=== PATIENT | female | born 2000 | race American Indian/Alaskan Native ===

== ENCOUNTER 2020-01-25 06:49 | Inpatient (IN) | payer MEDICAID ==
[2020-01-25] MEDS ORDERED: LIDOCAINE (2%) 20 MG/1 ML VIAL 20 ML MDV INFILTRATI SCH (09:00)
[2020-01-25] MEDS ORDERED: fentaNYL 100 MCG/2 ML INJ IV PRN ×2 (09:00→09:30)
[2020-01-25] MEDS ORDERED: MINERAL OIL 30 ML ORAL LIQD PO PRN (09:00)
[2020-01-25] MEDS ORDERED: OXYTOCIN DRIP 30 UNITS/500 ML BAG IV SCH ×2 (09:00)
[2020-01-25] MEDS ORDERED: AMPICILLIN/NS 2 GM/100 ML 2 GM/100 ML BAG IV SCH (09:00)
[2020-01-25] MEDS ORDERED: LACTATED RINGERS 1,000 ML IV SCH (09:00)
--- NOTE | 2020-01-25 09:02 | History and Physical Report ---
History of Present Illness Date of examination: 01/25/20 Date of admission: 01/25/20 07:22 Chief complaint: my water broke History of present illness: Pt presents c/o SROM noted by renewable energy engineer to be grossly SROM'ed. Pt also [place]. GBS positive Menstrual History Regularity: regular Menses every: 28 days Duration: 3 LMP: 05/19/2019 LMP reliability: month known LMP character: normal test type: urine test Date: 07/09/2019 BC at conception: none Planned ? no EDC Calculations EDC Confirmation: 02/12/2020 Gestational Age: 8 6/7 weeks Past History : 1 Term Births: 0 Premature Births: 0 Living Children: 0 Para: 0 Mult. Births: 0 Prev : 0 Prev. attempt? 0 Aborta: 0 Elect. Ab: 0 Spont. Ab: 0 Ectopics: 0 Past Medical History: Negative Past Medical History Past Surgical History: negative Past Medical History Anesthesia Complications: negative Anemia: negative Autoimmune Disorder: negative Bleeding Disorder: negative Blood Transfusions: negative Breast Disease: negative Diabetes: negative Heart Disease: negative Hypertension: negative Hepatitis/Liver Disease: negative Kidney Disease/UTI: negative Neurologic/Epilepsy/Migraines: negative Phlebitis/Varicosities: negative Psychiatric: negative Pulmonary Disease/Asthma: negative Thyroid Disease: negative Hospitalizations: negative Surgery (Non-russian language professor): negative Family Hx: dm - MGF lupus - MGM Social Hx: Single enrolled in [employer] no pets Infection History Hx of STD: none HIV Risk Eval: low risk Hepatitis B Risk Eval: low risk Personal hx. of genital herpes: no Partner hx. of genital herpes: no Rash, Viral, or Febrile illness since last LMP? no Varicella/Chicken Pox Status: Unknown Genetic History Congenital Heart Defect: Mom: no Dad: no Esmer Disease: Mom: no Dad: no Thalassemia Mom: no Dad: no Neural Tube Defect Mom: no Dad: no Down's Syndrome Mom: no Dad: no Channing-Sachs Mom: no Dad: no Sickle Cell Disease/Trait Mom: no Dad: no Hemophilia Mom: no Dad: no Muscular Dystrophy Mom: no Dad: no Cystic Fibrosis Mom: no Dad: no Martha Chorea Mom: no Dad: no Mental Retardation Mom: no Dad: no Fragile X Mom: no Dad: no Other Genetic/Chromosomal Disorder Mom: no Dad: no Child w/other defect Mom: no Dad: no Enviromental Exposures Xray Exposure: no Medication, drug, or alcohol use since LMP: no Chemical/Other Exposure: no Exposure to Cat Liter: no Hx of Parvovirus (Fifth Disease): no Occupational Exposure to Children: none Active Medications (reviewed today): None Current Allergies (reviewed today): No known allergies Past History Past Medical History: no pertinent history Past Surgical History: no surgical history INTRAVENOUS THERAPY NURSE History: other (see hpi) Family/Genetic History: other (see hpi) - Obstetrical History Expected Date of Delivery: 02/12/20 Actual Gestation: 37 Week(s) 3 Day(s) : 1 Medications and Allergies Allergies Allergy/AdvReac Type Severity Reaction Status Date / Time No Known Allergies Allergy Unverified 01/25/20 07:18 Home Medications Medication Instructions Recorded Confirmed Last Taken Type No Known Home Medications [No 01/25/20 01/25/20 Unknown History Reported Home Medications] Active Meds: Active Medications Fentanyl (Sublimaze) 100 mcg IV ONCE PRN PRN Reason: Labor Pain - Vital Signs Vital signs: Vital Signs Pulse BP 85 136/82 01/25/20 07:34 01/25/20 07:34 Temp Pulse Resp BP Pulse Ox 98.6 F 94 H 18 136/82 98 01/25/20 07:45 01/25/20 08:20 01/25/20 07:45 01/25/20 07:34 01/25/20 08:20 Results All other labs normal. Patient: GETACHEW FRENCH ID: [id number] Note: All result statuses are Final unless otherwise noted. Tests: (1) Profile I ([id number]) Order Note: Clinical Information: SRC:UR HBsAg Screen Negative Negative *1 RPR Non Reactive Non Reactive *2 Rubella Antibodies, IgG 2.83 index Immune >0.99 *3 Non-immune <0.90 Equivocal 0.90 - 0.99 Immune >0.99 ABO Grouping B *4 Rh Factor Positive *5 Please note: Prior records for this patient's ABO / Rh type are not available for additional verification. Antibody Screen Negative Negative *6 WBC 5.7 x10E3/uL 3.4-10.8 *7 RBC 4.03 x10E6/uL 3.77-5.28 *8 Hemoglobin 12.0 g/dL 11.1-15.9 *9 Hematocrit 35.8 % 34.0-46.6 *10 MCV 89 fL 79-97 *11 MCH 29.8 pg 26.6-33.0 *12 MCHC 33.5 g/dL 31.5-35.7 *13 RDW 14.3 % 11.7-15.4 *14 Platelets 311 x10E3/uL 150-450 *15 Neutrophils 61 % Not Estab. *16 Lymphs 28 % Not Estab. *17 Monocytes 8 % Not Estab. *18 Eos 3 % Not Estab. *19 Basos 0 % Not Estab. *20 ! Immature Cells <No Reported Value> *21 Neutrophils (Absolute) 3.4 x10E3/uL 1.4-7.0 *22 Lymphs (Absolute) 1.6 x10E3/uL 0.7-3.1 *23 Monocytes(Absolute) 0.4 x10E3/uL 0.1-0.9 *24 Eos (Absolute) 0.2 x10E3/uL 0.0-0.4 *25 Baso (Absolute) 0.0 x10E3/uL 0.0-0.2 *26 ! Immature Granulocytes 0 % Not Estab. *27 ! Immature Grans (Abs) 0.0 x10E3/uL 0.0-0.1 *28 ! NRBC <No Reported Value> *29 Hematology Comments: <No Reported Value> *30 Tests: (2) HIV Ag/Ab with Reflex ([id number]) HIV Screen 4th Generation wRfx Non Reactive Non Reactive *31 Tests: (3) HCV Ab w/Rflx to Verification ([id number]) ! HCV Ab 0.1 s/co ratio 0.0-0.9 *32 Tests: (4) Comment: ([id number]) ! Comment: [facility] *33 Non reactive HCV antibody screen is consistent with no HCV infection, unless recent infection is suspected or other evidence exists to indicate HCV infection. Tests: (5) Urine Culture, Routine ([id number]) Urine Culture, Routine Final report *34 Tests: (6) Result ([id number]) Assessment and Plan - Patient Problems (1) 37 weeks gestation of Current Visit: Yes Status: Acute (2) SROM (spontaneous rupture of membranes) Current Visit: Yes Status: Acute Plan to address problem: -pt in labor latent with contractions. Will start pitocin if contractions space to facility delivery -pt is GBS positive so will hold pitocin until she has had anitbx for the GBS (3) Positive GBS test Current Visit: Yes Status: Acute Plan to address problem: -start antibx at this time
[2020-01-25] MEDS ORDERED: TERBUTALINE 1 MG/1 ML INJ SUB-Q PRN (09:30)
[2020-01-25] MEDS ORDERED: ePHEDrine SULFATE 50 MG/1 ML INJ IV PRN ×2 (09:30→11:00)
[2020-01-25] MEDS ORDERED: ONDANSETRON 4 MG/2 ML INJ IV PRN ×2 (09:30→20:37)
[2020-01-25 10:16] LABS: Hematocrit 35.8 % (30.3-42.9); Hemoglobin 11.9 gm/dl (10.1-14.3); Mean Corpuscular HGB Conc 33 % (30-34); Mean Corpuscular Volume 91 fl (79-97); Platelet Count 218 K/mm3 (140-440); Red Blood Count 3.95 M/mm3 (3.65-5.03); Red Cell Distribution Width 13.5 % (13.2-15.2)
--- NOTE | 2020-01-25 10:45 | Anesthesia Consultation ---
Anesthesia Consult and Med Hx Date of service: 01/25/20 - Airway Anesthetic Teeth Evaluation: Good ROM Head & Neck: Adequate Mental/Hyoid Distance: Adequate Mallampati Class: Class II Intubation Access Assessment: Probably Good - Pulmonary Exam CTA: Yes - Cardiac Exam Cardiac Exam: RRR - Pre-Operative Health Status ASA Pre-Surgery Classification: ASA2 Proposed Anesthetic Plan: Epidural - Pulmonary Hx Smoking: No Hx Asthma: No Hx Respiratory Symptoms: No SOB: No COPD: No Home Oxygen Therapy: No Hx Pneumonia: No Hx Sleep Apnea: No - Cardiovascular System Hx Hypertension: No Hx Coronary Artery Disease: No Hx Heart Attack/AMI: No Hx Angina: No Hx Percutaneous Transluminal Coronary Angioplasty (PTCA): No Hx Cardia Arrhythmia: No Hx Pacemaker: No Hx Internal Defibrillator: No Hx Valvular Heart Disease: No Hx Heart Murmur: No Hx Peripheral Vascular Disease: No - Central Nervous System Hx Neuromuscular Disorder: No Hx Seizures: No CVA: No Hx Back Pain: No Hx Psychiatric Problems: No - Gastrointestinal Hx Ulcer: No Hx Gastroesophageal Reflux Disease: No - Endocrine Hx Renal Disease: No Hx End Stage Renal Disease: No Hx Cirrhosis: No Hx Liver Disease: No Hx Insulin Dependent Diabetes: No Hx Non-Insulin Dependent Diabetes: No Hx Thyroid Disease: No Hx Hypothyroidism: No Hx Hyperthyroidism: No - Hematic Hx Anemia: No Hx Sickle Cell Disease: No - Other Systems Hx Alcohol Use: No Hx Substance Use: No Hx Cancer: No Hx Obesity: No
[2020-01-25] MEDS ORDERED: NALOXONE 2 MG/2 ML INJ IV PRN (11:00)
[2020-01-25] MEDS ORDERED: fentaNYL-BUPIV 2 MCG/ML-0.125% 200 MCG/100 ML BAG EPIDURAL SCH (11:00)
--- NOTE | 2020-01-25 11:30 | Progress Note ---
Labor Epidural - Labor Epidural Start Time: 11:04 Stop Time: 11:18 Performed by:: QUIN ESPINOSA Procedure: Patient is requesting a laboring epidural for laboring pain. Patient IDed, H&P reviewed, all questions and concerns were answered, and consent was signed. Timeout was performed at bedside. Patient in sitting position. Sterile prep and drape was performed. [3] ml of 1% lidocaine skin wheal at L[3]- L [4]. 18- gauge Touhy epidural needle was advanced to loss of resistance with air technique 7cm X2 ATTEMPTS. Negative CSF negative blood. Epidural catheter advanced to [12] centimeters. [NEGATIVE] Aspiration [NEGATIVE] test dose. Sterile dressing applied. Patient tolerated procedure. performed by JIMENA Tucker
[2020-01-25] MEDS: AMPICILLIN/NS 1 GM/50 ML 1 GM/50 ML BAG IV SCH ×2 (12:45→18:28)
--- NOTE | 2020-01-25 14:16 | Progress Note ---
Assessment and Plan - Patient Problems (1) 37 weeks gestation of Current Visit: Yes Status: Acute (2) SROM (spontaneous rupture of membranes) Current Visit: Yes Status: Acute Plan to address problem: -pt in labor latent with contractions. -start pitocin at this time as contractions have spaced out -s/p andibx for GBS. Will con't until delivery -anticipate (3) Positive GBS test Current Visit: Yes Status: Acute Subjective - Subjective Date of service: 01/25/20 Principal diagnosis: 37+ weeks SROM, GBS + active labor Interval history: Pt s/p epidural and is more comfortable at this time and states she has no pain. exam is 590/0. d/w pt starting pitocin as she has mad minimal cx change since last exam 2 hours ago and shie has hd fewer contractions. She expressed understanding and agreess with plan of care. Patient reports: new complaints, loss of fluid, movement normal Objective - Vital Signs Vital Signs: Vital Signs - 12hr 01/25/20 01/25/20 01/25/20 07:34 07:35 07:40 Temperature Pulse Rate 85 84 93 H Respiratory Rate Blood Pressure 136/82 O2 Sat by Pulse 98 98 Oximetry 01/25/20 01/25/20 01/25/20 07:45 07:50 07:55 Temperature 98.6 F Pulse Rate 95 H 93 H 87 Respiratory 18 Rate Blood Pressure O2 Sat by Pulse 98 98 97 Oximetry 01/25/20 01/25/20 01/25/20 08:00 08:05 08:10 Temperature Pulse Rate 89 82 98 H Respiratory Rate Blood Pressure O2 Sat by Pulse 98 98 99 Oximetry 01/25/20 01/25/20 01/25/20 08:15 08:20 09:25 Temperature Pulse Rate 82 94 H 83 Respiratory Rate Blood Pressure O2 Sat by Pulse 99 98 97 Oximetry 01/25/20 01/25/20 01/25/20 09:30 09:35 09:40 Temperature Pulse Rate 85 85 73 Respiratory Rate Blood Pressure O2 Sat by Pulse 97 98 97 Oximetry 01/25/20 01/25/20 01/25/20 09:45 09:50 09:55 Temperature Pulse Rate 87 76 72 Respiratory Rate Blood Pressure O2 Sat by Pulse 98 98 97 Oximetry 11/21/20 11/21/20 11/21/20 10:00 10:05 10:10 Temperature Pulse Rate 74 71 94 H Respiratory Rate Blood Pressure O2 Sat by Pulse 98 98 98 Oximetry 01/25/20 01/25/20 01/25/20 10:20 10:25 10:30 Temperature Pulse Rate 73 75 68 Respiratory Rate Blood Pressure O2 Sat by Pulse 100 98 98 Oximetry 01/25/20 01/25/20 01/25/20 10:35 10:40 10:45 Temperature Pulse Rate 71 68 72 Respiratory Rate Blood Pressure O2 Sat by Pulse 98 98 98 Oximetry 01/25/20 01/25/20 01/25/20 10:50 10:55 11:00 Temperature Pulse Rate 75 90 89 Respiratory Rate Blood Pressure O2 Sat by Pulse 98 99 99 Oximetry 01/25/20 01/25/20 01/25/20 11:03 11:04 11:05 Temperature 97.9 F Pulse Rate 99 H 80 Respiratory Rate Blood Pressure 138/80 O2 Sat by Pulse 99 Oximetry 01/25/20 01/25/20 01/25/20 11:10 11:15 11:16 Temperature Pulse Rate 102 H 107 H 95 H Respiratory Rate Blood Pressure 128/79 O2 Sat by Pulse 99 97 Oximetry 01/25/20 01/25/20 01/25/20 11:19 11:20 11:21 Temperature Pulse Rate 70 85 83 Respiratory Rate Blood Pressure 125/77 124/72 O2 Sat by Pulse 98 Oximetry 01/25/20 01/25/20 01/25/20 11:25 11:27 11:30 Temperature Pulse Rate 75 86 90 Respiratory Rate Blood Pressure 125/88 O2 Sat by Pulse 99 98 Oximetry 01/25/20 01/25/20 01/25/20 11:31 11:35 11:37 Temperature Pulse Rate 85 86 78 Respiratory Rate Blood Pressure 128/60 113/61 O2 Sat by Pulse 98 Oximetry 01/25/20 01/25/20 01/25/20 11:40 11:41 11:45 Temperature Pulse Rate 80 78 86 Respiratory Rate Blood Pressure 119/69 O2 Sat by Pulse 98 98 Oximetry 01/25/20 01/25/20 01/25/20 11:50 11:55 11:57 Temperature Pulse Rate 83 79 80 Respiratory Rate Blood Pressure 120/56 O2 Sat by Pulse 98 98 Oximetry 01/25/20 01/25/20 01/25/20 12:00 12:05 12:10 Temperature Pulse Rate 86 80 84 Respiratory Rate Blood Pressure O2 Sat by Pulse 98 97 97 Oximetry 01/25/20 01/25/20 01/25/20 12:12 12:15 12:20 Temperature Pulse Rate 81 86 85 Respiratory Rate Blood Pressure 113/57 O2 Sat by Pulse 97 97 Oximetry 01/25/20 01/25/20 01/25/20 12:25 12:29 12:30 Temperature Pulse Rate 81 76 83 Respiratory Rate Blood Pressure 108/55 O2 Sat by Pulse 97 97 Oximetry 01/25/20 01/25/20 01/25/20 12:35 12:40 12:42 Temperature Pulse Rate 81 79 79 Respiratory Rate Blood Pressure 107/55 O2 Sat by Pulse 96 97 Oximetry 01/25/20 01/25/20 01/25/20 12:45 12:50 12:55 Temperature Pulse Rate 86 84 86 Respiratory Rate Blood Pressure O2 Sat by Pulse 97 97 97 Oximetry 01/25/20 01/25/20 01/25/20 12:57 13:00 13:05 Temperature Pulse Rate 93 H 81 75 Respiratory Rate Blood Pressure 108/60 O2 Sat by Pulse 97 98 Oximetry 01/25/20 01/25/20 01/25/20 13:10 13:13 13:15 Temperature Pulse Rate 77 71 78 Respiratory Rate Blood Pressure 114/61 O2 Sat by Pulse 98 98 Oximetry 01/25/20 01/25/20 01/25/20 13:20 13:25 13:27 Temperature Pulse Rate 77 75 79 Respiratory Rate Blood Pressure 104/59 O2 Sat by Pulse 96 97 Oximetry 01/25/20 01/25/20 01/25/20 13:30 13:35 13:40 Temperature Pulse Rate 76 73 74 Respiratory Rate Blood Pressure O2 Sat by Pulse 97 97 98 Oximetry 01/25/20 01/25/20 01/25/20 13:42 13:45 13:50 Temperature Pulse Rate 73 71 76 Respiratory Rate Blood Pressure 115/69 O2 Sat by Pulse 97 99 Oximetry 01/25/20 01/25/20 01/25/20 13:55 13:58 14:00 Temperature Pulse Rate 76 72 69 Respiratory Rate Blood Pressure 109/66 O2 Sat by Pulse 99 99 Oximetry 01/25/20 01/25/20 01/25/20 14:05 14:10 14:12 Temperature Pulse Rate 74 68 70 Respiratory Rate Blood Pressure 116/61 O2 Sat by Pulse 98 98 Oximetry - Exam FHR: category 2 (early varialbe noted with contractions overall good variability) Cervical Dilatation: 5 Cervical Effacement Percentage: 90 station: 0 Uterine Contraction Pattern: Irregular Uterine Tone Measurement Phase: Resting Uterine Contraction Intensity: Mild - Labs Labs: Laboratory Results - last 24 hr 01/25/20 01/25/20 01/25/20 09:00 09:00 09:00 WBC 6.9 RBC 3.95 Hgb 11.9 Hct 35.8 MCV 91 MCH 30 MCHC 33 RDW 13.5 Plt Count 218 Syphilis IgG Antibody Nonreactive Blood Type B POSITIVE Antibody Screen Negative
--- NOTE | 2020-01-25 14:48 | Event Note ---
Date: 01/25/20 I d/w pt placement if ISE/IUPC. All risk, benefits and alternatives were d/w pt and all questions were addressed and answered. Both devices placed w/o difficulty and pt tolearted the procedure well.
--- NOTE | 2020-01-25 17:39 | Progress Note ---
Assessment and Plan - Patient Problems (1) 37 weeks gestation of Current Visit: Yes Status: Acute (2) SROM (spontaneous rupture of membranes) Current Visit: Yes Status: Acute Plan to address problem: -con't to hold pitocin at this time and closely monitor -internal monitors in place -pt having labor progression that is appropriate and not off labor curve at this time. -anticipate (3) Positive GBS test Current Visit: Yes Status: Acute Subjective - Subjective Date of service: 01/25/20 Principal diagnosis: 37+ weeks SROM, GBS + active labor Interval history: Pt doing well. s/p prolonged jorge with slow recovery due to having consecutive contractions. Resolved with ivfs and position change and 02 which were applied prior to provider coming to the room.At the bedside the FHTs are currently cat 2 with good variability noted. Pt examined and is 8/100/1+. Will keep pitocin off a this time. Patient reports: new complaints, loss of fluid, movement normal Objective - Vital Signs Vital Signs: Vital Signs - 12hr 01/25/20 01/25/20 01/25/20 07:34 07:35 07:40 Temperature Pulse Rate 85 84 93 H Respiratory Rate Blood Pressure 136/82 O2 Sat by Pulse 98 98 Oximetry 01/25/20 01/25/20 01/25/20 07:45 07:50 07:55 Temperature 98.6 F Pulse Rate 95 H 93 H 87 Respiratory 18 Rate Blood Pressure O2 Sat by Pulse 98 98 97 Oximetry 01/25/20 01/25/20 01/25/20 08:00 08:05 08:10 Temperature Pulse Rate 89 82 98 H Respiratory Rate Blood Pressure O2 Sat by Pulse 98 98 99 Oximetry 01/25/20 01/25/20 01/25/20 08:15 08:20 09:25 Temperature Pulse Rate 82 94 H 83 Respiratory Rate Blood Pressure O2 Sat by Pulse 99 98 97 Oximetry 01/25/20 01/25/20 01/25/20 09:30 09:35 09:40 Temperature Pulse Rate 85 85 73 Respiratory Rate Blood Pressure O2 Sat by Pulse 97 98 97 Oximetry 01/25/20 01/25/20 01/25/20 09:45 09:50 09:55 Temperature Pulse Rate 87 76 72 Respiratory Rate Blood Pressure O2 Sat by Pulse 98 98 97 Oximetry 01/25/20 01/25/20 01/25/20 10:00 10:05 10:10 Temperature Pulse Rate 74 71 94 H Respiratory Rate Blood Pressure O2 Sat by Pulse 98 98 98 Oximetry 01/25/20 01/25/20 01/25/20 10:20 10:25 10:30 Temperature Pulse Rate 73 75 68 Respiratory Rate Blood Pressure O2 Sat by Pulse 100 98 98 Oximetry 01/25/20 01/25/20 01/25/20 10:35 10:40 10:45 Temperature Pulse Rate 71 68 72 Respiratory Rate Blood Pressure O2 Sat by Pulse 98 98 98 Oximetry 01/25/20 01/25/20 01/25/20 10:50 10:55 11:00 Temperature Pulse Rate 75 90 89 Respiratory Rate Blood Pressure O2 Sat by Pulse 98 99 99 Oximetry 01/25/20 01/25/20 01/25/20 11:03 11:04 11:05 Temperature 97.9 F Pulse Rate 99 H 80 Respiratory Rate Blood Pressure 138/80 O2 Sat by Pulse 99 Oximetry 01/25/20 01/25/20 01/25/20 11:10 11:15 11:16 Temperature Pulse Rate 102 H 107 H 95 H Respiratory Rate Blood Pressure 128/79 O2 Sat by Pulse 99 97 Oximetry 01/25/20 01/25/20 01/25/20 11:19 11:20 11:21 Temperature Pulse Rate 70 85 83 Respiratory Rate Blood Pressure 125/77 124/72 O2 Sat by Pulse 98 Oximetry 01/25/20 01/25/20 01/25/20 11:25 11:27 11:30 Temperature Pulse Rate 75 86 90 Respiratory Rate Blood Pressure 125/88 O2 Sat by Pulse 99 98 Oximetry 01/25/20 01/25/20 01/25/20 11:31 11:35 11:37 Temperature Pulse Rate 85 86 78 Respiratory Rate Blood Pressure 128/60 113/61 O2 Sat by Pulse 98 Oximetry 01/25/20 01/25/20 01/25/20 11:40 11:41 11:45 Temperature Pulse Rate 80 78 86 Respiratory Rate Blood Pressure 119/69 O2 Sat by Pulse 98 98 Oximetry 01/25/20 01/25/20 01/25/20 11:50 11:55 11:57 Temperature Pulse Rate 83 79 80 Respiratory Rate Blood Pressure 120/56 O2 Sat by Pulse 98 98 Oximetry 01/25/20 01/25/20 01/25/20 12:00 12:05 12:10 Temperature Pulse Rate 86 80 84 Respiratory Rate Blood Pressure O2 Sat by Pulse 98 97 97 Oximetry 01/25/20 01/25/20 01/25/20 12:12 12:15 12:20 Temperature Pulse Rate 81 86 85 Respiratory Rate Blood Pressure 113/57 O2 Sat by Pulse 97 97 Oximetry 01/25/20 01/25/20 01/25/20 12:25 12:29 12:30 Temperature Pulse Rate 81 76 83 Respiratory Rate Blood Pressure 108/55 O2 Sat by Pulse 97 97 Oximetry 01/25/20 01/25/20 01/25/20 12:35 12:40 12:42 Temperature Pulse Rate 81 79 79 Respiratory Rate Blood Pressure 107/55 O2 Sat by Pulse 96 97 Oximetry 01/25/20 01/25/20 01/25/20 12:45 12:50 12:55 Temperature Pulse Rate 86 84 86 Respiratory Rate Blood Pressure O2 Sat by Pulse 97 97 97 Oximetry 01/25/20 01/25/20 01/25/20 12:57 13:00 13:05 Temperature Pulse Rate 93 H 81 75 Respiratory Rate Blood Pressure 108/60 O2 Sat by Pulse 97 98 Oximetry 01/25/20 01/25/20 01/25/20 13:10 13:13 13:15 Temperature Pulse Rate 77 71 78 Respiratory Rate Blood Pressure 114/61 O2 Sat by Pulse 98 98 Oximetry 01/25/20 01/25/20 01/25/20 13:20 13:25 13:27 Temperature Pulse Rate 77 75 79 Respiratory Rate Blood Pressure 104/59 O2 Sat by Pulse 96 97 Oximetry 01/25/20 01/25/20 01/25/20 13:30 13:35 13:40 Temperature Pulse Rate 76 73 74 Respiratory Rate Blood Pressure O2 Sat by Pulse 97 97 98 Oximetry 01/25/20 01/25/20 01/25/20 13:42 13:45 13:50 Temperature Pulse Rate 73 71 76 Respiratory Rate Blood Pressure 115/69 O2 Sat by Pulse 97 99 Oximetry 01/25/20 01/25/20 01/25/20 13:55 13:58 14:00 Temperature Pulse Rate 76 72 69 Respiratory Rate Blood Pressure 109/66 O2 Sat by Pulse 99 99 Oximetry 01/25/20 01/25/20 01/25/20 14:05 14:10 14:12 Temperature Pulse Rate 74 68 70 Respiratory Rate Blood Pressure 116/61 O2 Sat by Pulse 98 98 Oximetry 01/25/20 01/25/20 01/25/20 14:15 14:20 14:25 Temperature Pulse Rate 72 71 80 Respiratory Rate Blood Pressure O2 Sat by Pulse 98 97 97 Oximetry 01/25/20 01/25/20 01/25/20 14:28 14:30 14:35 Temperature Pulse Rate 68 72 73 Respiratory Rate Blood Pressure 108/56 O2 Sat by Pulse 97 97 Oximetry 01/25/20 01/25/20 01/25/20 14:40 14:44 14:45 Temperature Pulse Rate 67 70 68 Respiratory Rate Blood Pressure 107/58 O2 Sat by Pulse 99 97 Oximetry 01/25/20 01/25/20 01/25/20 14:50 14:55 14:57 Temperature Pulse Rate 68 65 67 Respiratory Rate Blood Pressure 107/59 O2 Sat by Pulse 95 99 Oximetry 01/25/20 01/25/20 01/25/20 15:00 15:05 15:10 Temperature Pulse Rate 70 73 75 Respiratory Rate Blood Pressure O2 Sat by Pulse 97 98 97 Oximetry 01/25/20 01/25/20 01/25/20 15:12 15:15 15:20 Temperature Pulse Rate 68 71 74 Respiratory Rate Blood Pressure 103/58 O2 Sat by Pulse 97 97 Oximetry 01/25/20 01/25/20 01/25/20 15:25 15:28 15:30 Temperature Pulse Rate 71 75 69 Respiratory Rate Blood Pressure 107/55 O2 Sat by Pulse 97 98 Oximetry 01/25/20 01/25/20 01/25/20 15:35 15:40 15:42 Temperature Pulse Rate 71 77 72 Respiratory Rate Blood Pressure 102/54 O2 Sat by Pulse 98 98 Oximetry 01/25/20 01/25/20 01/25/20 15:45 15:50 15:55 Temperature Pulse Rate 70 72 69 Respiratory Rate Blood Pressure O2 Sat by Pulse 98 98 97 Oximetry 01/25/20 01/25/20 01/25/20 15:57 16:00 16:05 Temperature Pulse Rate 68 71 67 Respiratory Rate Blood Pressure 102/56 O2 Sat by Pulse 97 97 Oximetry 01/25/20 01/25/20 01/25/20 16:10 16:12 16:15 Temperature Pulse Rate 74 71 82 Respiratory Rate Blood Pressure 109/59 O2 Sat by Pulse 97 97 Oximetry 01/25/20 01/25/20 01/25/20 16:20 16:25 16:28 Temperature Pulse Rate 74 78 70 Respiratory Rate Blood Pressure 108/57 O2 Sat by Pulse 99 99 Oximetry 01/25/20 01/25/20 01/25/20 16:30 16:35 16:40 Temperature Pulse Rate 76 86 68 Respiratory Rate Blood Pressure O2 Sat by Pulse 98 98 98 Oximetry 01/25/20 01/25/20 01/25/20 16:42 16:45 16:50 Temperature Pulse Rate 70 64 69 Respiratory Rate Blood Pressure 103/61 O2 Sat by Pulse 99 100 Oximetry 01/25/20 01/25/20 01/25/20 16:55 16:57 17:00 Temperature Pulse Rate 72 82 87 Respiratory Rate Blood Pressure 116/69 O2 Sat by Pulse 99 98 Oximetry 01/25/20 01/25/20 01/25/20 17:05 17:10 17:12 Temperature Pulse Rate 67 66 66 Respiratory Rate Blood Pressure 116/68 O2 Sat by Pulse 99 99 Oximetry 01/25/20 01/25/20 01/25/20 17:15 17:20 17:25 Temperature Pulse Rate 64 69 77 Respiratory Rate Blood Pressure O2 Sat by Pulse 99 100 99 Oximetry 01/25/20 01/25/20 17:27 17:30 Temperature Pulse Rate 69 91 H Respiratory Rate Blood Pressure 117/69 O2 Sat by Pulse 98 Oximetry - Exam FHR: category 2 Cervical Dilatation: 8 Cervical Effacement Percentage: 100 station: 1+ Uterine Contraction Pattern: Regular Uterine Tone Measurement Phase: Resting Uterine Contraction Intensity: Moderate Extremities: normal - Labs Labs: Laboratory Results - last 24 hr 01/25/20 01/25/20 01/25/20 09:00 09:00 09:00 WBC 6.9 RBC 3.95 Hgb 11.9 Hct 35.8 MCV 91 MCH 30 MCHC 33 RDW 13.5 Plt Count 218 Syphilis IgG Antibody Nonreactive Blood Type B POSITIVE Antibody Screen Negative
--- NOTE | 2020-01-25 20:35 | Procedure Note ---
OB Delivery Note - Delivery Date of Delivery: 01/25/20 Surgeon: MICHELLE JOHANSEN Estimated blood loss: 300cc - Vaginal Delivery presentation: vertex Delivery position: OA Intrapartum events: mult.variable deceleratio, other(please specify) (tight nuchal cord) Delivery induction: none Delivery augmentation: pitocin Delivery monitor: external FHT, external uterine, internal FHT, internal uterine Route of delivery: Delivery placenta: spontaneous Delivery cord: nuchal cord (times one tight. clamped times 2 and cut times one) Episiotomy: midline (no extension) Delivery repair: vicryl (3-0) Anesthesia: intravenous, epidural Delivery comments: Delivery as above. Ant shoulder and rest of delivered without difficulty. Nuchal cord clamped times x2 and cut times one and easily reduced. taken to waiting NICU team. Infant delivered over MLE. MLE was w/o extension and repaired in usual fashion. Placenta delivered spontaneously intact. EBL 300ml. - A at 1 minute: 7 at 5 minutes: 9 Infant Gender: Male (5lbs 7oz)
[2020-01-25] MEDS ORDERED: LANOLIN/ZINC/DIMETHICONE (LANSINOH) 7 GM TP PRN (20:37)
[2020-01-25] MEDS ORDERED: diphenhydrAMINE 25 MG CAP PO PRN (20:37)
[2020-01-25] MEDS ORDERED: MAGNESIUM HYDROXIDE (MOM) ORAL LIQD UDC PO PRN (20:37)
--- NOTE | 2020-01-25 22:41 | Post Anesthesia Evaluation ---
- Post Anesthesia Evaluation Patient Participated: Yes Airway Patent: Yes Stable Respiratory Function: Yes Nausea/Vomiting: No Temp > 96.8F: Yes Pain Manageable: Yes Adequeate Hydration: Yes Anesthesia Complications: No Block Receding Appropriately: Yes Patient on Ventilator: No
[2020-01-25] MEDS: WITCH HAZEL/ GLYCERIN PAD TP PRN (23:51)
[2020-01-25] MEDS: IBUPROFEN 800 MG TAB PO SCH (23:53)
[2020-01-25] MEDS: DOCUSATE SODIUM 100 MG CAP PO SCH (23:54)
[2020-01-26] MEDS ORDERED: IBUPROFEN 600 MG TAB PO SCH
[2020-01-26] MEDS: IBUPROFEN 800 MG TAB PO SCH ×3 (06:45→18:07)
[2020-01-26] MEDS: DOCUSATE SODIUM 100 MG CAP PO SCH ×2 (09:38→23:29)
[2020-01-26 11:14] LABS: Hematocrit 30.4 % (30.3-42.9); Hemoglobin 9.9 gm/dl (10.1-14.3)
--- NOTE | 2020-01-26 11:50 | Progress Note ---
Assessment and Plan - Patient Problems (1) 37 weeks gestation of Current Visit: Yes Status: Resolved (2) SROM (spontaneous rupture of membranes) Current Visit: Yes Status: Resolved (3) Positive GBS test Current Visit: Yes Status: Acute (4) Normal vaginal delivery Current Visit: Yes Status: Acute Plan to address problem: -doing well -con't care -d/c home this pm Subjective - Subjective Date of service: 01/26/20 Principal diagnosis: PPD#1 s/p Interval history: Pt doing well. Pain is well controlled. States she would like d/c home today if baby is cleared for discharge. I d/w that I will write the order and if infant cleared she will be d/c home today. Patient reports: appetite normal, voiding normally [place]: doing well, nursing well, bottle feeding Objective - Vital Signs Latest vital signs: Vital Signs Temp Pulse Resp BP BP Pulse Ox 01/26/20 09:14 97.8 F 113 H 18 125/79 95 01/26/20 05:16 98.7 F 107 H 16 117/57 97 01/25/20 22:45 98.9 F 76 20 120/67 97 01/25/20 22:36 99.0 F 83 117/61 01/25/20 22:35 83 117/61 01/25/20 22:27 81 115/56 01/25/20 22:12 83 112/60 01/25/20 22:04 102 H 99 01/25/20 21:59 85 97 01/25/20 21:57 82 115/57 01/25/20 21:54 89 99 01/25/20 21:49 97 H 99 01/25/20 21:44 90 97 01/25/20 21:42 82 109/56 01/25/20 21:39 81 98 01/25/20 21:34 82 97 01/25/20 21:32 99.1 F 81 18 117/61 01/25/20 21:29 87 98 01/25/20 21:27 88 117/61 01/25/20 21:24 87 97 01/25/20 21:19 81 96 01/25/20 21:14 94 H 98 01/25/20 21:12 90 113/58 01/25/20 21:09 85 98 01/25/20 21:04 88 96 11/21/20 21:03 93 H 93 11/21/20 20:59 88 97 11/21/20 20:57 93 H 117/56 11/21/20 20:54 91 H 98 11/21/20 20:49 94 H 98 11/21/20 20:44 97 H 98 11/21/20 20:42 96 H 121/56 11/21/20 20:39 99 H 98 11/21/20 20:35 101 H 91 1121/20 20:34 93 H 99 21/20 20:27 81 107/53 98 11/21/20 20:22 89 98 11/21/20 20:17 85 98 11/21/20 20:12 85 111/58 98 11/21/20 20:07 74 97 21/20 20:02 69 98 21/20 19:58 66 92 21/20 19:57 93 H 103/55 98 /21/20 19:52 85 98 21/20 19:47 101 H 99 21/20 19:42 99 H 99 21/20 19:38 109 H 93 21/20 19:37 75 98 /21/20 19:32 78 99 21/20 19:27 83 120/58 98 /21/20 19:21 87 95 21/20 19:20 69 90 21/20 19:16 76 99 21/20 19:15 104 H 93 21/20 19:12 69 125/60 21/20 19:11 78 98 21/20 19:08 89 89 21/20 19:06 144 H 98 21/20 19:03 100 H 91 21/20 19:01 67 98 /21/20 18:56 85 90 21/20 18:55 76 98 21/20 18:50 91 H 99 21/20 18:45 83 99 21/20 18:43 78 94 21/20 18:42 78 126/72 21/20 18:40 84 98 /21/20 18:35 67 98 21/20 18:30 78 98 21/20 18:27 72 116/64 21/20 18:25 68 100 11/21/20 18:20 69 98 21/20 18:15 72 98 21/20 18:13 71 116/63 01/24/20 18:10 78 99 21/20 18:05 81 98 01/24/20 18:00 77 99 21/20 17:57 64 118/63 01/24/20 17:55 65 98 21/20 17:50 70 99 01/24/20 17:45 63 98 01/24/20 17:43 66 123/62 01/24/20 17:40 79 98 21/20 17:35 71 98 21/20 17:30 91 H 98 01/24/20 17:27 69 117/69 01/24/20 17:25 77 99 01/24/20 17:20 69 100 01/24/20 17:15 64 99 01/24/20 17:12 66 116/68 01/24/20 17:10 66 99 01/24/20 17:05 67 99 20 17:00 87 98 01/24/20 16:57 82 116/69 01/24/20 16:55 72 99 01/24/20 16:50 69 100 01/24/20 16:45 64 99 01/24/20 16:42 70 103/61 01/24/20 16:40 68 98 01/24/20 16:35 86 98 01/24/20 16:30 76 98 01/24/20 16:28 70 108/57 01/24/20 16:25 78 99 01/24/20 16:20 74 99 01/24/20 16:15 82 97 01/24/20 16:12 71 109/59 21/20 16:10 74 97 21/20 16:05 67 97 21/20 16:00 71 97 21/20 15:57 68 102/56 21/20 15:55 69 97 21/20 15:50 72 98 21/20 15:45 70 98 21/20 15:42 72 102/54 21/20 15:40 77 98 21/20 15:35 71 98 21/20 15:30 69 98 21/20 15:28 75 107/55 21/20 15:25 71 97 20 15:20 74 97 20 15:15 71 97 20 15:12 68 103/58 01/25/20 15:10 75 97 01/25/20 15:05 73 98 01/25/20 15:00 70 97 01/25/20 14:57 67 107/59 01/25/20 14:55 65 99 01/25/20 14:50 68 95 01/25/20 14:45 68 97 01/25/20 14:44 70 107/58 01/25/20 14:40 67 99 01/25/20 14:35 73 97 01/25/20 14:30 72 97 01/25/20 14:28 68 108/56 01/25/20 14:25 80 97 01/25/20 14:20 71 97 01/25/20 14:15 72 98 01/25/20 14:12 70 116/61 01/25/20 14:10 68 98 01/25/20 14:05 74 98 01/25/20 14:00 69 99 01/25/20 13:58 72 109/66 01/25/20 13:55 76 99 01/25/20 13:50 76 99 01/25/20 13:45 71 97 01/25/20 13:42 73 115/69 01/25/20 13:40 74 98 01/25/20 13:35 73 97 01/25/20 13:30 76 97 01/25/20 13:27 79 104/59 01/25/20 13:25 75 97 01/25/20 13:20 77 96 01/25/20 13:15 78 98 01/25/20 13:13 71 114/61 20 13:10 77 98 01/25/20 13:05 75 98 01/25/20 13:00 81 97 01/25/20 12:57 93 H 108/60 01/25/20 12:55 86 97 01/25/20 12:50 84 97 20 12:45 86 97 01/25/20 12:42 79 107/55 20 12:40 79 97 01/25/20 12:35 81 96 01/25/20 12:30 83 97 01/25/20 12:29 76 108/55 01/25/20 12:25 81 97 01/25/20 12:20 85 97 01/25/20 12:15 86 97 01/25/20 12:12 81 113/57 01/25/20 12:10 84 97 01/25/20 12:05 80 97 01/25/20 12:00 86 98 01/25/20 11:57 80 120/56 01/25/20 11:55 79 98 01/25/20 11:50 83 98 Intake and Output 01/25/20 01/26/20 01/26/20 22:59 06:59 14:59 Intake Total 19.466 240 Output Total 1600 Balance -1580.534 240 Intake: IV 19.466 Left Antecubital 10 PITOCin/NS 30 UNIT/500ML 9.466 30 units In 500 ml @ 2 mls/hr IV TITR MARINO Rx#: [id number] Intake, Free Water 240 Output: Urine 1600 Uretheral (Mcclellan) 400 Void 1200 Other: Total, Output Amount 1200 # Voids Void 1 Estimated Blood Loss 300 - Exam Cardiovascular: Present: Normal S1, Normal S2 Lungs: Present: Clear to auscultation, Normal air movement Abdomen: Present: normal appearance, soft. Absent: distention, tenderness, guarding Deep Tendon Reflex Grade: Normal +2 - Labs Labs: Abnormal lab results 01/26/20 Range/Units 10:33 Hgb 9.9 L (10.1-14.3) gm/dl
--- NOTE | 2020-01-26 12:23 | Discharge Summary ---
Providers - Providers Date of Admission: 01/25/20 08:55 Date of discharge: 01/26/20 Attending physician: GORAN LANDA Primary care physician: GORAN LANDA Hospitalization Reason for admission: rupture of membranes Delivery: Procedure details: see delivery note Episiotomy: midline (no extensions) Laceration: none Other procedures: none complications: none baby: male Hospital course: Pt admitted and had that was not complicated. She has had routine pp care thus far and desires d/c home this pm. Condition at discharge: Good Disposition: DC-01 TO HOME OR SELFCARE - Discharge Diagnoses (1) 37 weeks gestation of Status: Resolved (2) SROM (spontaneous rupture of membranes) Status: Resolved (3) Positive GBS test Status: Acute (4) Normal vaginal delivery Status: Acute Plan - Provider Discharge Summary Activity: routine, no sex for 6 weeks, no heavy lifting 4 weeks Diet: routine Instructions: routine Additional instructions: [] Smoking cessation referral if applicable(refer to patient education folder for contact #) [] Refer to [facility] Booklet Call your doctor immediately for: * Fever > 100.5 * Heavy vaginal bleeding ( >1 pad per hour) * Severe persistent headache * Shortness of breath * Reddened, hot, painful area to leg or breast * Drainage or odor from incision. * Keep incision clean and dry at all times and follow doctor's instructions regarding bathing/showering - Follow up plan Follow up: GORAN LANDA MD [Primary Care Provider] - 7 Days
[2020-01-26] MEDS ORDERED: DIPHtheria,PERTUSSIS(ACELL),TETANUS VACCINE/PF 0.5 ML VIAL IM ONE (20:38)
[2020-01-27] MEDS: IBUPROFEN 800 MG TAB PO SCH ×2 (05:11→11:05)
[2020-01-27] MEDS: WITCH HAZEL/ GLYCERIN PAD TP PRN (05:11)
[2020-01-27] MEDS: DOCUSATE SODIUM 100 MG CAP PO SCH (11:06)
[2020-01-27 14:06] VITALS: BP 110/77
== END 2020-01-27 15:20 | disposition home or self-care (01) | DRG 775 ==
LOC: TRG 06:49 → INTOOBSV 07:22 → LD 07:22 → OBSVTOIN 08:55 → OB 22:49
PROVIDERS: ADMIT Obstetrics & Gynecology; ATTEND Obstetrics & Gynecology
PROC: 10E0XZZ Delivery of Products of Conception, External Approach (ICD-10-PCS; principal; 2020-01-25)
PROC: 0W8NXZZ Division of Female Perineum, External Approach (ICD-10-PCS; 2020-01-25)
PROC: 3E0R3BZ Introduction of Anesthetic Agent into Spinal Canal, Percutaneous Approach (ICD-10-PCS; 2020-01-25)
PROC: 00HU33Z Insertion of Infusion Device into Spinal Canal, Percutaneous Approach (ICD-10-PCS; 2020-01-25)
PROC: 3E0234Z Introduction of Serum, Toxoid and Vaccine into Muscle, Percutaneous Approach (ICD-10-PCS; 2020-01-26)
DX: O42.92 Full-term premature rupture of membranes, unspecified as to length of time between rupture and onset of labor (principal); O99.824 Streptococcus B carrier state complicating childbirth; Z3A.37 37 weeks gestation of pregnancy; Z37.0 Single live birth; Z23 Encounter for immunization; O69.1XX0 Labor and delivery complicated by cord around neck, with compression, not applicable or unspecified; O76 Abnormality in fetal heart rate and rhythm complicating labor and delivery
CPT/HCPCS: 36415; 85014; 85018; 85027; 86592; 86850; 86900; 86901; 88307; G0378; J0290; J2590; J3010; J7120; U0003